=== PATIENT | male | born 1970 | race American Indian/Alaskan Native ===

== ENCOUNTER 2020-08-09 09:59 | Outpatient (CLI) | payer BC | END 2020-08-09 10:00 | disposition home or self-care (01) | LOC: SLR 09:59 | PROVIDERS: ATTEND Internal Medicine Critical Care Medicine | DX: G47.33 Obstructive sleep apnea (adult) (pediatric) (principal); R40.0 Somnolence; E66.9 Obesity, unspecified | CPT/HCPCS: 95810 ==

== ENCOUNTER 2020-09-13 11:00 | Outpatient (CLI) | payer BC | END 2020-09-13 11:01 | disposition home or self-care (01) | LOC: SLR 11:00 | PROVIDERS: ATTEND Internal Medicine Critical Care Medicine | DX: G47.33 Obstructive sleep apnea (adult) (pediatric) (principal) | CPT/HCPCS: 95811 ==

== ENCOUNTER 2020-09-20 12:38 | Outpatient (CLI) | payer BC ==
--- NOTE | 2020-09-20 13:41 | Cat Scan Report ---
CT HEAD WITHOUT CONTRAST INDICATION / CLINICAL INFORMATION: ALTERED MENTAL STATUS, UNSPECIFIED. TECHNIQUE: Axial imaging performed from the skull apex through the skull base without the use of cont rast. Sagittal and coronal reformatted images. All CT scans at this location are performed using CT dose reduction for ALARA by means of automated exposure control. COMPARISON: None available. FINDINGS: CEREBRAL PARENCHYMA: No significant abnormality. No acute territorial infarct. HEMORRHAGE: None. EXTRA-AXIAL SPACES: Normal in size and morphology for the patient's age. VENTRICULAR SYSTEM: Normal in size and morphology for the patient's age. MIDLINE SHIFT OR HERNIATION: None. CEREBELLUM / BRAINSTEM: No significant abnormality. CALVARIUM: No significant abnormality. ORBITS: Normal as visualized. PARANASAL SINUSES / MASTOID AIR CELLS: Mild chronic mucosal thickening is noted in the right frontal, ethmoid and maxillary sinuses. The remaining sinuses and mastoid air cells are clear. SOFT TISSUES of HEAD: No significant abnormality. ADDITIONAL FINDINGS: None. IMPRESSION: No acute intracranial abnormality. Signer Name: Jermain Guillaume Jr, MD Signed: 09/20/2020 1:36 PM Workstation Name: [id number]
== END 2020-09-20 12:39 | disposition home or self-care (01) ==
LOC: CT 12:38
PROVIDERS: ATTEND Internal Medicine
DX: R41.82 Altered mental status, unspecified (principal)
CPT/HCPCS: 70450

== ENCOUNTER 2021-01-01 07:33 | Outpatient (CLI) | payer BC ==
[2021-01-01 08:04] LABS: Bilirubin,Urine NEG (Negative); Blood,Urine NEG (Negative); Color,Urine Yellow (Yellow); Hematocrit 45.5 % (35.5-45.6); Hemoglobin 14.8 gm/dl (11.8-15.2); Mean Corpuscular HGB Conc 33 % (32-34); Mean Corpuscular Volume 87 fl (84-94); Mucus,Urine FEW /HPF; Platelet Count 245 K/mm3 (140-440); Protein,Urine <15 mg/dL mg/dL (Negative); Red Blood Count 5.23 M/mm3 (3.65-5.03); Red Cell Distribution Width 15.1 % (13.2-15.2); Urobilinogen,Urine < 2.0 mg/dL (<2.0)
[2021-01-01 08:08] LABS: Basophils % (Auto) 0.5 % (0.0-1.8); Eosinophils # (Auto) 0.1 K/mm3 (0.0-0.4); Eosinophils % (Auto) 1.8 % (0.0-4.3); Lymphocytes # (Auto) 3.3 K/mm3 (1.2-5.4); Lymphocytes % (Auto) 45.7 % (13.4-35.0); Monocytes # (Auto) 0.7 K/mm3 (0.0-0.8); Monocytes % (Auto) 10.2 % (0.0-7.3)
[2021-01-01 08:21] LABS: Alanine Aminotransferase 14 units/L (7-56); Albumin 3.9 g/dL (3.9-5); BUN/Creatinine Ratio 12; Blood Urea Nitrogen 11 mg/dL (9-20); Calcium 9.1 mg/dL (8.4-10.2); Chol/HDL Ratio 4.84 %; HDL Cholesterol 52 mg/dL (40-59); Hemolysis Index 12; LDL Cholesterol,Direct 177 mg/dL (50-130)
[2021-01-04 14:39] LABS: Vitamin D, 25-OH, D2 <4 ng/mL
== END 2021-01-01 07:34 | disposition home or self-care (01) ==
LOC: LAB 07:33
PROVIDERS: ATTEND Internal Medicine
DX: Z13.1 Encounter for screening for diabetes mellitus (principal); Z13.220 Encounter for screening for lipoid disorders; Z00.00 Encounter for general adult medical examination without abnormal findings; Z13.29 Encounter for screening for other suspected endocrine disorder; Z12.5 Encounter for screening for malignant neoplasm of prostate; E55.9 Vitamin D deficiency, unspecified
CPT/HCPCS: 36415; 80053; 80061; 81001; 82306; 83036; 84153; 84443; 85025

== ENCOUNTER 2021-08-12 07:06 | Day surgery (SDC) | payer BC ==
[~2021-08-12 07:06] MED LIST: SODIUM CHLORIDE 0.9% 1000 ML 1,000 ML IV SCH
--- NOTE | 2021-08-12 08:07 | Anesthesia Consultation ---
Anesthesia Consult and Med Hx - Airway Anesthetic Teeth Evaluation: Poor, Partials ROM Head & Neck: Adequate Mental/Hyoid Distance: Adequate Mallampati Class: Class III Intubation Access Assessment: Possibly Difficult - Pulmonary Exam CTA: Yes - Cardiac Exam Cardiac Exam: RRR - Pre-Operative Health Status ASA Pre-Surgery Classification: ASA3 Proposed Anesthetic Plan: MAC - Pulmonary Hx Smoking: No Hx Respiratory Symptoms: No COPD: No Hx Sleep Apnea: Yes - Cardiovascular System Hx Hypertension: Yes (Not currently on medication) Hx Heart Attack/AMI: No - Central Nervous System Hx Neuromuscular Disorder: No Hx Seizures: No CVA: No - Gastrointestinal Hx Gastroesophageal Reflux Disease: Yes (occasionally) - Endocrine Hx Renal Disease: No Hx Liver Disease: No Hx Thyroid Disease: No - Hematic Hx Anemia: No Hx Sickle Cell Disease: No - Other Systems Hx Alcohol Use: No Hx Substance Use: No Hx Cancer: No Hx Obesity: Yes (BMI 42) - Additional Comments Anesthesia Medical History Comments: No hx of anesthetic complications
--- NOTE | 2021-08-12 08:07 | Anesthesia Day of Surgery ---
Anesthesia Day of Surgery - Day of Surgery Patient Examined: Yes Patient H&P Reviewed: Yes Patient is NPO: Yes
[2021-08-12] MEDS ORDERED: LIDOCAINE MPF (2%) 20 MG/1 ML VIAL 5 ML ONE (08:50)
[2021-08-12] MEDS ORDERED: propofoL 200 MG/20 ML VIAL IV ONE ×3 (08:50→09:14)
--- NOTE | 2021-08-12 09:32 | Short Stay Summary ---
Short Stay Documentation Date of service: 08/12/21 Narrative H&P: The patient presents for EGD to evaluate epigastric pain and screening colonoscopy, average risk profile. His last colonoscopy was over 10 years ago. - History Past Medical History: hypertension, other (DIPAK, morbid obesity) Past Surgical History: No surgical history Social history: no significant social history, , lives with family - Allergies and Medications Current Medications: Allergies No Known Allergies Allergy (Unverified 05/04/14 13:12) Home Medications Medication Instructions Recorded Confirmed Last Taken Type Olmesartan (Nf) 08/07/21 08/07/21 Unknown History Active Medications Sodium Chloride (Nacl 0.9% 1000 Ml) 1,000 mls @ 50 mls/hr IV DIRECT MELANY Stop: 08/12/21 20:00 - Physical exam General appearance: no acute distress, well-nourished, obese Integumentary: no rash, no growths, no abnormal pigmentation HEENT: Atraumatic, PERRLA, EOMI, Mucous membr. moist/pink Lungs: Clear to auscultation, Normal air movement Breasts: deferred Heart: Regular rate, Normal S1, Normal S2, No murmurs Gastrointestinal: normoactive bowel sounds, no tenderness, no distended, no masses, no guarding, no organomegaly, obese Male Genitourinary: deferred Rectal Exam: deferred Extremities: no ischemia, pulses intact, pulses symmetrical, No edema, normal temperature, normal color, Full ROM Neurological: Normal gait, Normal speech, Strength at 5/5 X4 ext, Normal tone, Sensation intact, Cranial nerves 3-12 NL - Brief post op/procedure progress note Date of procedure: 08/12/21 Findings: see procedure reports Estimated blood loss: none Pathology: list (1. antral biopsies for h pylori 2. descending colon polyp) Specimen disposition: to lab Condition: stable - Disposition Condition at discharge: Good Disposition: 01 HOME / SELF CARE / HOMELESS - Discharge Diagnoses (1) Epigastric pain Status: Acute (2) Colon cancer screening Status: Acute Short Stay Discharge Plan Activity: other (no driving for 24 hours) Weight Bearing Status: Full Weight Bearing Diet: regular Follow up with: JIN FAJARDO MD [Primary Care Provider] - 7 Days
--- NOTE | 2021-08-12 09:34 | Operative Report ---
Operative Report Operative Report: Date of procedure: 08/12/2021 Procedure: Esophagogastroduodenoscopy with biopsies of the antrum for H. pylori testing Preprocedure diagnosis: Epigastric pain Post procedure diagnosis: Mild erosive antral gastritis Endoscopist: Dr. Bradley Anesthesia: Monitored anesthesia care per anesthesia department Medications: Propofol per anesthesia Estimated blood loss: 0 After careful discussion of the nature and purpose of the procedure as well as details the technique risks benefits and alternatives consent was obtained. The patient was placed in the left lateral decubitus position and medicated per anesthesia. The tip of the [employer] EQ 570 video scope was passed per orum under direct vision into the esophagus and advanced into the stomach and descending duodenum. The descending duodenum the duodenal bulb and pylorus were symmetrical and normal. The scope was withdrawn into the stomach and the stomach then gently insufflated with air. The antrum revealed a 2 mm erosion in the prepyloric area. Biopsies of the antrum were taken for H. pylori testing. The stomach was further insufflated and the scope was then retroflexed and partially withdrawn. The cardia, fundus, and body of the stomach were within normal limits and easily distensible.The scope was then withdrawn in the forward position. A small hiatus hernia was present. The esophageal body was normal throughout. The procedure was was well tolerated and the patient was observed in recovery. Impressions: Mild erosive prepyloric antral gastritis. Small hiatus hernia. Plan: Await biopsies for H. pylori. The patient will call the office in 1 week for discussion. Electronically signed: Ady Bradley MD
--- NOTE | 2021-08-12 09:37 | Operative Report ---
Operative Report Operative Report: Date of procedure: 08/12/2021 Preprocedure diagnosis: Screening colonoscopy, last study over 10 years ago. Post procedure diagnosis: 1.8 cm polyp on a stalk in the descending colon. Suboptimal colon preparation in some areas. Procedure: Colonoscopy to the cecum with hot snare polypectomy. Endoscopist: Dr. Bradley Anesthesia: Monitored anesthesia care per anesthesia department Estimated blood loss: 0 Medications: Monitored anesthesia care. See separate report by anesthesia for details. After careful discussion of the nature and purpose of the procedure as well as details of the technique risks benefits and alternatives the patient gave consent. Please see recent history and physical from the office. The patient was placed in the left lateral decubitus position and medicated per anesthesia. A rectal exam was performed sphincter tone was normal there were no masses palpable. The [employer] 570 scope was passed transanally and advanced under continuous direct vision without difficulty to the cecum. The colon preparation was fair. The cecum could not be seen in its entirety due to retained food particles in stool. The ascending colon was normal and on forward and retroflexed views. The transverse colon was normal. There were scattered stool and a 1.8 cm polyp on a long stalk present in the descending colon. The polyp was removed with snare electrocautery and retrieved by withdrawal of the scope on the tip with suction. Scope was reintroduced to the level of the polypectomy site. No bleeding was evident. The mucosa was then inspected distally upon withdrawal. The sigmoid colon was normal although there were a few areas of stool precluding mucosal inspection. The rectum was normal on forward and retroflexed views. The procedure was well-tolerated overall and the patient was observed in recovery. Conclusions: 1.8 cm descending colon polyp. Suboptimal colon preparation in the cecum and some areas of the left colon precluding mucosal inspection.. Plan: Await pathology report. Repeat colonoscopy in 6 to 12 months in light of suboptimal preparation. Signed electronically: Ady Bradley M.D.
[2021-08-12 09:48] VITALS: BP 126/75
--- NOTE | 2021-08-12 13:26 | Post Anesthesia Evaluation ---
- Post Anesthesia Evaluation Patient Participated: Yes Airway Patent: Yes Stable Respiratory Function: Yes Nausea/Vomiting: No Temp > 96.8F: Yes Pain Manageable: Yes Adequeate Hydration: Yes Anesthesia Complications: No Block Receding Appropriately: Not Applicable Patient on Ventilator: No
== END 2021-08-12 10:10 | disposition home or self-care (01) ==
LOC: GIO 07:06
PROVIDERS: ATTEND Internal Medicine Gastroenterology
DX: Z12.11 Encounter for screening for malignant neoplasm of colon (principal); R10.13 Epigastric pain; D12.4 Benign neoplasm of descending colon; K29.60 Other gastritis without bleeding; K63.89 Other specified diseases of intestine; K44.9 Diaphragmatic hernia without obstruction or gangrene; K21.9 Gastro-esophageal reflux disease without esophagitis; I10 Essential (primary) hypertension; E66.9 Obesity, unspecified; Z68.41 Body mass index [BMI] 40.0-44.9, adult; Z79.899 Other long term (current) drug therapy; Z98.890 Other specified postprocedural states
CPT/HCPCS: 43239; 45385; 88305; 88342; J2704; J3490; J7030; J7120; Q0162